=== PATIENT | male | born 1975 | race African-American/Black ===

== ENCOUNTER 2019-11-10 16:03 | Emergency (ER) | payer SELFPAY ==
[2019-11-10] MEDS ORDERED: Ondansetron ODT 4 MG TAB ONE (16:12)
[2019-11-10] MEDS ORDERED: Dicyclomine 20 MG TAB ONE (16:12)
== END 2019-11-10 16:18 | disposition home or self-care (01) ==
LOC: BURERS 16:03
DX: R11.2 Nausea with vomiting, unspecified (principal); F17.220 Nicotine dependence, chewing tobacco, uncomplicated
CPT/HCPCS: 99283; Q0162

== ENCOUNTER 2025-02-12 18:29 | Emergency (ER) | payer SELFPAY ==
[2025-02-12] MEDS ORDERED: Ondansetron PF 4 MG/2 ML Vial ONE (18:50)
[2025-02-12 19:01] LABS: Eosinophils 1 % (0-10); Hematocrit 53.6 % (42.0-52.0); Hemoglobin 17.3 g/dL (14.0-18.0); Lymphocytes 20 % (21-51); MDiff Complete? YES; Mean Corpuscular HGB CONC 32.3 g/dL (32.0-36.0); Mean Corpuscular Hemoglobin 28.6 pg (27.0-31.0); Mean Corpuscular Volume 88.5 fl (78.0-98.0); Mean Platelet Volume 6.7 fL (7.4-10.4); Monocytes 5 % (0-10); Neutrophil 74 % (42-75); Platelet Count 405 10x3/uL (130-400); RBC Distribution Width 12.4 % (11.5-14.5); Red Blood Cell (RBC) Count 6.05 mill/uL (4.70-6.10); White Blood Cell (WBC) Count 14.1 10x3/uL (4.8-10.8)
[2025-02-12 19:08] LABS: ALT (SGPT) 38 U/L (Less than 45); AST (SGOT) 34 U/L (11-34); Albumin 4.8 g/dL (3.1-4.5); Alkaline Phosphatase 64 U/L (40-110); Anion Gap 16 mmol/L (10-20); BUN (Urea Nitrogen) 7 mg/dL (8.4-25.7); Bilirubin, Total 0.5 mg/dL (0.3-1.2); Calc. Creatinine Clearance 0 mL/min (70-130); Calcium 10.2 mg/dL (7.8-10.44); Carbon Dioxide 22 mmol/L (22-29); Chloride 105 mmol/L (98-107); Estimated GFR 68; Globulin 3.9 g/dL (2.4-3.5); Glucose 134 mg/dL (70-105); Lipase 28 U/L (8-78); Potassium 3.5 mmol/L (3.5-5.1); Protein, Total 8.7 g/dL (6.0-8.3); Sodium 139 mmol/L (136-145)
[2025-02-12 20:37] LABS: Bilirubin Negative (Negative); Blood, Urine Moderate (Negative); Clarity Clear (Clear); Glucose, Urine (Dipstick) Negative (Negative); Ketone, Urine Negative (Negative); Leukocyte Negative (Negative); Nitrite Negative (Negative); Protein, Urine (Dipstick) Negative (Neg-Trace); Specific Gravity, Urine Less/Equal 1.005 (1.005-1.030); Urobilinogen 0.2 mg/dL (Less than 2)
[2025-02-12 20:43] LABS: Bacteria/HPF None Seen HPF (None Seen); CAUTI Indications for Culture Dysuria,urgency,freq; RBC/HPF 0-3 HPF (0-3); Squamous Epithelial None Seen HPF (0-3); WBC/HPF None Seen HPF (0-3)
[2025-02-12 20:44] LABS: Urine Culture Reflex No No
== END 2025-02-12 21:08 | disposition home or self-care (01) ==
LOC: BURERS 18:29
DX: K50.00 Crohn's disease of small intestine without complications (principal); R11.2 Nausea with vomiting, unspecified; F17.220 Nicotine dependence, chewing tobacco, uncomplicated
CPT/HCPCS: 36415; 74177; 80053; 81001; 83690; 85025; 96361; 96374; J2405